=== PATIENT | female | born 1975 | race Caucasian/White ===

== ENCOUNTER 2018-06-04 09:33 | Emergency (ER) | payer OTHER ==
[~2018-06-04] VITALS: Ht 147.3 cm; Wt 53.5 kg
== END 2018-06-04 11:35 | disposition home or self-care (01) ==
LOC: ER 09:33
DX: N75.0 Cyst of Bartholin's gland (principal); N90.7 Vulvar cyst; Z88.0 Allergy status to penicillin
CPT/HCPCS: 76857; 99283-25

== ENCOUNTER → 2018-10-22 | Outpatient (CLI) | payer OTHER ==
[2018-10-24 16:07] LABS: HPV 16 Negative (Negative); HPV 18 Negative (Negative); HPV OTHER HR TYPES Negative (Negative)
== END | disposition home or self-care (01) ==
LOC: LAB 11:04 → LAB SHORT 11:04
PROVIDERS: Obstetrics & Gynecology
DX: Z01.419 Encounter for gynecological examination (general) (routine) without abnormal findings (principal)
CPT/HCPCS: 87624; G0123

== ENCOUNTER → 2019-10-09 | Outpatient (CLI) | payer OTHER ==
[2019-10-13 15:09] LABS: HPV 16 Negative (Negative); HPV 18 Negative (Negative); HPV OTHER HR TYPES Negative (Negative)
== END ==
LOC: LAB 18:43 → LAB SHORT 18:43
PROVIDERS: Physician Assistant
DX: Z01.419 Encounter for gynecological examination (general) (routine) without abnormal findings (principal)
CPT/HCPCS: 87624; G0123

== ENCOUNTER → 2021-07-05 | Outpatient (CLI) | payer OTHER | END | disposition home or self-care (01) | LOC: LAB SHORT 08:30 → LAB 08:30 | DX: R14.0 Abdominal distension (gaseous) (principal) | CPT/HCPCS: 87338 ==

== ENCOUNTER 2022-12-06 10:37 | Day surgery (SDC) | payer OTHER ==
[2022-12-04 10:53] LABS: BASOPHILS ABSOLUTE AUTO 0.08 K/mm3 (0.00-0.23); BASOPHILS PERCENT AUTO 1 % (0-2); EOSINOPHILS ABSOLUTE AUTO 0.16 K/mm3 (0.00-0.68); EOSINOPHILS PERCENT AUTO 3 % (0-6); Hematocrit 39.6 % (33.0-51.0); Hemoglobin 13.5 g/dL (11.5-16.0); IMMATURE GRAN ABSOLUTE AUTO 0.01 K/mm3 (0.00-0.10); IMMATURE GRAN PERCENT AUTO 0 % (0-1); LYMPHOCYTES ABSOLUTE AUTO 1.95 K/mm3 (0.84-5.20); LYMPHOCYTES PERCENT AUTO 31 % (21-46); MONOCYTES ABSOLUTE AUTO 0.33 K/mm3 (0.16-1.47); MONOCYTES PERCENT AUTO 5 % (4-13); Mean Corpuscular HGB 31.8 pg (26.0-34.0); Mean Corpuscular HGB Conc 34.1 g/dL (31.5-36.5); Mean Corpuscular Volume 93 fL (80-100); Mean Platelet Volume 9.6 fL (9.1-12.4); NEUTROPHILS ABSOLUTE AUTO 3.81 K/mm3 (1.96-9.15); NEUTROPHILS PERCENT AUTO 60 % (41-73); Platelet Count 259 K/mm3 (150-400); RDW Standard Deviation 44.4 fL (35.1-46.3); Red Blood Cell Count 4.25 M/mm3 (3.80-5.20); White Blood Cell Count 6.34 K/mm3 (4.00-11.30)
[2022-12-04 11:04] LABS: Bun/Creatinine Ratio 11.3 (12.0-20.0); Calcium, Blood 9.2 mg/dL (8.5-10.1); Creatinine, Blood 0.62 mg/dL (0.40-1.00); Potassium, Blood 3.8 mmol/L (3.5-5.5)
[2022-12-06] VITALS (16 sets, daily range): BP systolic 103–141; BP diastolic 47–103
[~2022-12-06] VITALS: Ht 148 cm; Wt 51.6 kg
[~2022-12-06 10:37] MED LIST: ASPI81CH PO; CENTRUM SILVER1 EAC2 PO; IBU800 M1 PO; MULVITA PO; OMEP20ER PO
--- NOTE | 2022-12-06 12:41 | NUR ---
Ambulatory in Day Surgery. History, Chart, Medications and Allergies reviewed before start of procedure. Patient confirms NPO status and agrees with scheduled surgery. Patient reports completing Chlorhexadine shower X2 prior to admission to hospital. Surgical site prepped with 2% Chlorhexidine cloth wipe. Pre-Op teaching done. Pt verbalizes understanding. Patient States Post-Procedure ride home has been arranged.
--- NOTE | 2022-12-06 19:45 | NUR ---
ARRIVAL PT NEW ADMIT, ARRIVING FROM RECOVERY. IN NO DISTRESS, ON RA. VSS. MINIMAL VAGINAL BLEEDING NOTED, LAP SITES C/D/I, MARTINEZ IN PLACE. A/OX4. REPORTING SOME ABD PAIN. PLAN TO MEDICATE PER EMAR.
[2022-12-07 04:03] VITALS: BP 111/73
[2022-12-07 04:24] LABS: BASOPHILS ABSOLUTE AUTO 0.02 K/mm3 (0.00-0.23); BASOPHILS PERCENT AUTO 0 % (0-2); EOSINOPHILS PERCENT AUTO 0 % (0-6); Hematocrit 36.9 % (33.0-51.0); Hemoglobin 12.7 g/dL (11.5-16.0); IMMATURE GRAN ABSOLUTE AUTO 0.04 K/mm3 (0.00-0.10); IMMATURE GRAN PERCENT AUTO 0 % (0-1); LYMPHOCYTES ABSOLUTE AUTO 1.06 K/mm3 (0.84-5.20); LYMPHOCYTES PERCENT AUTO 8 % (21-46); MONOCYTES ABSOLUTE AUTO 0.57 K/mm3 (0.16-1.47); MONOCYTES PERCENT AUTO 4 % (4-13); Mean Corpuscular HGB Conc 34.4 g/dL (31.5-36.5); Mean Corpuscular Volume 93 fL (80-100); Mean Platelet Volume 9.7 fL (9.1-12.4); NEUTROPHILS ABSOLUTE AUTO 11.58 K/mm3 (1.96-9.15); NEUTROPHILS PERCENT AUTO 87 % (41-73); Platelet Count 232 K/mm3 (150-400); RDW Coefficient Variation 12.9 % (11.7-14.2); RDW Standard Deviation 43.8 fL (35.1-46.3); Red Blood Cell Count 3.97 M/mm3 (3.80-5.20); White Blood Cell Count 13.27 K/mm3 (4.00-11.30)
--- NOTE | 2022-12-07 06:44 | NUR ---
PT HAD NO ACUTE EVENTS AFTER COMING TO THE FLOOR FROM SURGERY. VSS WITH ONE BOUT OF NAUSEA AROUND 0415, WHICH RESOLVED WITH ZOFRAN AND THE PT VOMITING. PT HAS YET TO BE OOB TODAY, BUT IS STILL WANTING TO GO HOME TODAY. PT IS STILL NEEDING IV PAIN MEDS AT THIS TIME, BUT IS COMFORTABLE WITH THE PAIN MEDS THAT HAVE BEEN GIVEN THIS SHIFT.
[2022-12-07 07:15] VITALS: BP 120/60
[2022-12-07] MEDS ORDERED: Percocet 5-3251 EACH PO (10:58)
[2022-12-07] MEDS ORDERED: PROM25 PO (10:58)
[2022-12-07] MEDS ORDERED: SIME80CH PO (10:59)
--- NOTE | 2022-12-07 11:22 | NUR ---
DISCHARGE NOTE: PATIENT AND PATIENTS WERE BOTH EDUCATED ON DISCHARGE INSTRUCTIONS. BOTH VERBALIZED UNDERSTANDING OF INSTRUCTIONS AND HAD NO FURTHER QUESTIONS AT THIS TIME. BOTH IV'S WERE TAKEN OUT AND WNL. PAIN IS MANAGED WITH ORAL PAIN MEDS. HER ABD HAS X4 LAP SITES (ONE OF THEM BEING A SMALL MIDLINE) WITH WOUND GLUE THAT ARE ALL C/D/I. SHE IS TOLERATING PO INTAKE AND IS VOIDING. PATIENT IS DRESSED AND HAS PERSONAL ITEMS IN THE ROOM GATHERED. SHE IS BEING WHEELCHAIRED OUT TO HER HUSBANDS CAR TO BE TAKEN HOME.
== END 2022-12-07 11:25 | disposition home or self-care (01) ==
LOC: ORSCMMR 10:37 → ORD 11:30 → ORSCMMR 12:45 → ORD 12:45 → SURS 19:39 → ORSCMMR 12-07 11:25
PROVIDERS: Obstetrics & Gynecology
PROC: 0UT0FZZ Resection of Right Ovary, Via Natural or Artificial Opening With Percutaneous Endoscopic Assistance (ICD-10-PCS; principal; 2022-12-06 13:30)
PROC: 0UT7FZZ Resection of Bilateral Fallopian Tubes, Via Natural or Artificial Opening With Percutaneous Endoscopic Assistance (ICD-10-PCS; principal; 2022-12-06 13:30)
PROC: 0UT9FZZ Resection of Uterus, Via Natural or Artificial Opening With Percutaneous Endoscopic Assistance (ICD-10-PCS; principal; 2022-12-06 13:30)
DX: N92.1 Excessive and frequent menstruation with irregular cycle (principal); D25.9 Leiomyoma of uterus, unspecified; D50.0 Iron deficiency anemia secondary to blood loss (chronic); N80.329 Endometriosis of the posterior cul-de-sac, unspecified depth; K21.9 Gastro-esophageal reflux disease without esophagitis; Z79.899 Other long term (current) drug therapy; Z79.82 Long term (current) use of aspirin
CPT/HCPCS: 36415; 80048; 84703; 85025; 86850; 86900; 86901; 88305; 88307; A9270; J0690; J1100; J1170; J1650; J1885; J2250; J2405; J2704; J3010; J7120